=== PATIENT | female | born 1980 | race American Indian/Alaskan Native ===

== ENCOUNTER 2016-08-29 05:34 | Emergency (ER) | payer SELFPAY ==
[2016-08-29 06:43] VITALS: BP 142/95
[2016-08-29] MEDS ORDERED: ZOFRAN ODT PO ONE (07:31)
[2016-08-29 08:15] LABS: Basophils % (Auto) 0.8 % (0.0-1.8); Eosinophils % (Auto) 1.4 % (0.0-4.3); Hematocrit 36.9 % (30.3-42.9); Hemoglobin 12.2 gm/dl (10.1-14.3); Mean Corpuscular HGB Conc 33 % (30-34); Mean Corpuscular Hemoglobin 30 pg (28-32); Mean Corpuscular Volume 91 fl (79-97); Platelet Count 231 K/mm3 (140-440); Red Blood Count 4.04 M/mm3 (3.65-5.03); Red Cell Distribution Width 13.1 % (13.2-15.2); White Blood Count 4.6 K/mm3 (4.5-11.0)
--- NOTE | 2016-08-29 08:18 | Emergency Department Report ---
ED Extremity Problem HPI - General Chief complaint: Skin/Abscess/Foreign Body Stated complaint: POSS SPIDER BITE ON R THIGH Time Seen by Provider: 08/29/16 07:20 Source: patient Mode of arrival: Ambulatory Limitations: No Limitations - History of Present Illness Initial comments: PT states she was at home on Thu and she noticed a small bite to her R thigh. PT states that this site stings. pt rates the discomfort 7/10. PT has not taken anything for her symptoms. PT states she called a nurse line and was told to be seen. PT is also concerned because she has been feeling fatigued and her menstrual cycles have been lasting about 2 weeks since vaginal delivery 11-23-15. PT has not seen linux support engineer about this yet. PT is not breast feeding MD Complaint: extremity pain (painful insect bite ) Onset/Timin -: Gradual, days(s) Location: right, lower extremity (thigh ) History of Same: No -: No fever Severity scale (0 -10): 7 Quality: burning (stings) Consistency: constant Worsens with: other (gradually ) Associated Symptoms: rash. denies: chest pain, shortness of breath - Related Data Previous Rx's Medication Instructions Recorded Last Taken Type Ferrous Sulfate [Feosol 325 MG tab] 325 mg PO BID #60 tablet 11/25/15 Unknown Rx Labetalol [Normodyne TAB] 100 mg PO BID #60 tablet 11/25/15 Unknown Rx Vit W-Ca,Fe,FA(<1 mg) 1 each PO DAILY #30 tablet 11/25/15 Unknown Rx [ Vitamins] Cephalexin [Keflex] 500 mg PO Q6HR #40 capsule 08/29/16 Unknown Rx Mupirocin [Bactroban 2%] 1 applic TP TID 5 Days 08/29/16 Unknown Rx hydrOXYzine PAMOATE [Vistaril] 25 mg PO Q6HR PRN #12 capsule 08/29/16 Unknown Rx Allergies Allergy/AdvReac Type Severity Reaction Status Date / Time No Known Allergies Allergy Verified 12/12/15 14:53 ED Review of Systems ROS: Stated complaint: POSS SPIDER BITE ON R THIGH Other details as noted in HPI Comment: All other systems reviewed and negative Constitutional: weakness (generalized fatigue ). denies: fever Respiratory: denies: shortness of breath, SOB with exertion Cardiovascular: denies: chest pain Gastrointestinal: nausea. denies: abdominal pain, vomiting Genitourinary: abnormal menses. denies: dysuria Musculoskeletal: as per HPI (R thigh pain ) Skin: rash, change in color (redness around bite site ) ED Past Medical Hx - Past Medical History Previous Medical History?: Yes Hx Hypertension: Yes ("ON&OFF" takes no meds) Hx Congestive Heart Failure: No Hx Diabetes: No Hx Deep Vein Thrombosis: No Hx Renal Disease: No Hx Sickle Cell Disease: No Hx Seizures: No Hx Asthma: No Hx COPD: No Hx HIV: No Additional medical history: edema - Surgical History Past Surgical History?: Yes Additional Surgical History: D & C - Social History Smoking Status: Never Smoker Substance Use Type: Alcohol - Medications Home Medications: Home Medications Medication Instructions Recorded Confirmed Last Taken Type Ferrous Sulfate [Feosol 325 MG tab] 325 mg PO BID #60 tablet 11/25/15 Unknown Rx Labetalol [Normodyne TAB] 100 mg PO BID #60 tablet 11/25/15 Unknown Rx Vit W-Ca,Fe,FA(<1 mg) 1 each PO DAILY #30 tablet 11/25/15 Unknown Rx [ Vitamins] Cephalexin [Keflex] 500 mg PO Q6HR #40 capsule 08/29/16 Unknown Rx Mupirocin [Bactroban 2%] 1 applic TP TID 5 Days 08/29/16 Unknown Rx hydrOXYzine PAMOATE [Vistaril] 25 mg PO Q6HR PRN #12 capsule 08/29/16 Unknown Rx ED Physical Exam - General Limitations: No Limitations General appearance: alert, in no apparent distress - Head Head exam: Present: atraumatic, normocephalic, normal inspection - Eye Eye exam: Present: normal appearance. Absent: conjunctival injection - ENT ENT exam: Present: normal exam, normal external ear exam - Neck Neck exam: Present: normal inspection, full ROM - Respiratory Respiratory exam: Present: normal lung sounds bilaterally. Absent: respiratory distress, chest wall tenderness - Cardiovascular Cardiovascular Exam: Present: regular rate, normal rhythm, normal heart sounds - GI/Abdominal GI/Abdominal exam: Present: soft, normal bowel sounds. Absent: tenderness - Extremities Exam Extremities exam: Present: full ROM. Absent: pedal edema - Expanded Lower Extremity Exam Right Upper Leg exam: Present: tenderness, swelling, erythema (pustle to R ant thigh with surrounding erythema and tenderness ) Knee exam: Present: full ROM. Absent: tenderness Neuro vascular tendon exam: Present: no vascular compromise Gait: Positive: antalgic - Back Exam Back exam: Present: normal inspection, full ROM - Neurological Exam Neurological exam: Present: alert, oriented X3 - Psychiatric Psychiatric exam: Present: normal affect, normal mood - Skin Skin exam: Present: warm, dry, erythema (to R thigh). Absent: urticaria, vesicles ED Course Vital Signs 08/29/16 05:40 Temperature 97.8 F Pulse Rate 63 Respiratory 16 Rate Blood Pressure 142/95 [Right] O2 Sat by Pulse 97 Oximetry - Reevaluation(s) Reevaluation #1: 08/29/16 08:23 PT aware of plan of care. Reevaluation #2: 08/29/16 08:48 PT aware of lab results. PT aware she will need to follow up with OB/ [facility] for her abnormal periods. PT has no questions at this time. - Pulse Oximetry Interpretation Digit-Finger Initial Pulse Oximetry Readin Actions Taken: none ED Medical Decision Making - Lab Data Result diagrams: 08/29/16 07:45 Laboratory Results - last 72 hr 08/29/16 08/29/16 07:45 07:45 WBC 4.6 RBC 4.04 Hgb 12.2 Hct 36.9 MCV 91 MCH 30 MCHC 33 RDW 13.1 L Plt Count 231 Lymph % (Auto) 39.5 H [place] % (Auto) 10.4 H Eos % (Auto) 1.4 Baso % (Auto) 0.8 Lymph # 1.8 [place] # 0.5 Eos # 0.1 Baso # 0.0 Seg Neutrophils % 47.9 Seg Neutrophils # 2.2 HCG, Qual Negative - Differential Diagnosis anemia, local reaction vs cellulitis Critical Care Time: No Critical care attestation.: If time is entered above; I have spent that time in minutes in the direct care of this critically ill patient, excluding procedure time. ED Disposition Clinical Impression: Irregular menstrual bleeding Insect bite of thigh, right, infected Qualifiers: Encounter type: initial encounter Qualified Code(s): S70.361A - Insect bite ( nonvenomous), right thigh, initial encounter Disposition: - TO HOME OR SELFCARE Is pt being admited?: No Does the pt Need Aspirin: No Condition: Stable Instructions: Menstruation (ED), Cellulitis (ED), Insect Bite or Sting (ED), Menorrhagia (ED) Additional Instructions: No driving or ETOH after taking Vistaril Follow up with OB/ [facility] in 3-5 days Follow up with PCP in 3-5 days Have your bp rechecked at follow up return to the ED if worsening or concerns Prescriptions: Cephalexin [Keflex] 500 mg PO Q6HR #40 capsule hydrOXYzine PAMOATE [Vistaril] 25 mg PO Q6HR PRN #12 capsule PRN Reason: Itching Mupirocin [Bactroban 2%] 1 applic TP TID 5 Days Referrals: PRIMARY CARE, [Primary Care Provider] - 3-5 Days PIERCE FRAIRE MD [Staff Physician] - 3-5 Days SUGAR WHALEN MD [Staff Physician] - 3-5 Days [facility] [Outside] - 3-5 Days Time of Disposition: 08:54
== END 2016-08-29 09:07 | disposition home or self-care (01) ==
LOC: ED 05:34
DX: S70.361A Insect bite (nonvenomous), right thigh, initial encounter (principal); N92.6 Irregular menstruation, unspecified; I10 Essential (primary) hypertension; Z98.890 Other specified postprocedural states; W57.XXXA Bitten or stung by nonvenomous insect and other nonvenomous arthropods, initial encounter; Y93.9 Activity, unspecified; Y99.9 Unspecified external cause status; Y92.009 Unspecified place in unspecified non-institutional (private) residence as the place of occurrence of the external cause
CPT/HCPCS: 36415; 84703; 85025; 99283; Q0162